=== PATIENT | female | born 2000 | race Caucasian/White ===

== ENCOUNTER 2021-04-05 06:23 | Inpatient (IN) ==
[2021-04-05] MEDS ORDERED: D5 1/2 NS 1000 ML 1,000 ML IV ONE (06:34)
[2021-04-05] MEDS ORDERED: BETADINE SOLN ONE (06:34)
[2021-04-05] MEDS ORDERED: PITOCIN ONE (06:34)
[2021-04-05] MEDS ORDERED: D5LR 1L W PITOCIN 10 UNITS/L 10 UNITS/1,000 ML BAG IV ONE (06:35)
[2021-04-05] MEDS ORDERED: D5 1/2 NS 1L W PITOCIN 20 UNITS/L 20 UNITS/1,000 ML BAG IV ONE (06:35)
[2021-04-05] MEDS: D5 1/2 NS 1000 ML 1,000 ML IV SCH ×2 (06:50→16:49)
--- NOTE | 2021-04-05 07:08 | DR.OB ---
OB Quick Note - Assessment/Plan Assessment/Plan: L&D 04/05/21 at 6:55am S-No complaint. O-Afebrile,VSS ZPM=208 with good LTV, +accel, no decel. CTX=mild uterine irritability CVX=4cm/75%/0/VTX AROM with light meconium. IUPC and FSE placed. A-IUP at 40 4/7 weeks for induction P-Begin pitocin induction Anticipate
[2021-04-05] MEDS ORDERED: PHENERGAN INJ 25 MG IM PRN ×2 (07:38→16:05)
[2021-04-05] MEDS ORDERED: MORPHINE SULFATE INJ 2 MG INJ IVP PRN (07:38)
[2021-04-05] MEDS ORDERED: STADOL INJ IVP PRN (07:38)
[2021-04-05] MEDS ORDERED: NUBAIN INJ 200 MG VIAL MULTIDOSE IVP PRN (07:38)
[2021-04-05] MEDS ORDERED: PITOCIN IVP ONE (07:38)
[2021-04-05] MEDS ORDERED: D5LR 1L W PITOCIN 10 UNITS/L 10 UNITS/1,000 ML BAG IV PRN (07:38)
[2021-04-05] MEDS ORDERED: REGLAN INJ 10 MG VIAL IVP PRN (07:38)
[2021-04-05] MEDS ORDERED: NAROPIN EPIDURAL 0.2% 100 ML ONE (08:16)
[2021-04-05] MEDS ORDERED: LR 1000 ML IV 1,000 ML IV ONE ×2 (08:16→11:43)
[2021-04-05] MEDS ORDERED: FENTANYL VIAL INJ 100 mcg ONE (08:16)
[2021-04-05] MEDS ORDERED: REGLAN INJ 10 MG VIAL ONE (09:04)
[2021-04-05] MEDS ORDERED: ZOFRAN INJ 4 MG VIAL ONE (09:04)
[2021-04-05] MEDS ORDERED: PEPCID 20 MG IV PREMIX* 50 ML IV ONE (09:04)
[2021-04-05] MEDS ORDERED: EPHEDRINE SULFATE INJ ONE (09:05)
--- NOTE | 2021-04-05 12:08 | DR.OB ---
OB Quick Note - Assessment/Plan Assessment/Plan: L&D 04/05/21 at 12:05pm Pitocin=12mu/min. S-No complaint. s/p epidural. O-Afebrile,VSS CLB=514 with good LTV, +accel, no decel. CTX=q 1 1/2 to 2 min., about 35-55mmHg CVX=7cm/100%/0 A-IUP at 40 4/7 weeks for induction P-Continue pitocin induction Anticipate
[2021-04-05] MEDS ORDERED: MOTRIN TAB 800 MG PO PRN (16:05)
--- NOTE | 2021-04-05 16:26 | DR.OB ---
OB Quick Note - Assessment/Plan Assessment/Plan: Delivery Note SENIOR CARE PROVIDER 04/05/21 at 3:48pm Patient complete and pushing. Head delivered over intact perineum. Nose and mouth bulb suctioned. No nuchal cord. Body delivered over intact perineum. Cord clamped x 2 and cut. Infant handed to attendant. Cord sent for gases. Placenta delivered spontaneously / intact / 3 vessel cord. No CVX tears noted. A small second degree midline tear noted and repaired with 0-vicryl in usual fashion. Viable female , VTX/OA, wt=7'7" and 8/9, stable to NBN. Mother stable to RR. YES=[id number].
[2021-04-05] MEDS: D5 1/2 NS 1000 ML 1,000 ML with PITOCIN 20 UNITS IV SCH ×2 (16:48)
[2021-04-05] MEDS ORDERED: ADACEL or BOOSTRIX TDaP VACCINE IM ONE (17:00)
[2021-04-05] MEDS ORDERED: MILK OF MAGNESIA PO PRN (17:00)
[2021-04-05] MEDS ORDERED: DERMOPLAST PAIN RELIEF SPRAY TOP PRN (17:00)
[2021-04-05] MEDS ORDERED: AMBIEN PO PRN (17:00)
[2021-04-06] MEDS: D5 1/2 NS 1000 ML 1,000 ML with PITOCIN 20 UNITS IV SCH ×4 (03:04→11:47)
[2021-04-06 05:24] LABS: HEMATOCRIT 30.9 % (36.0-47.0); HEMOGLOBIN 10.1 g/dL (12.0-16.0)
[2021-04-06] MEDS ORDERED: PRENATAL PLUS PO SCH (09:00)
[2021-04-06 16:29] VITALS: BP 131/89
== END 2021-04-06 17:40 | disposition home or self-care (01) | DRG 807 ==
LOC: LD 06:23 → MED/SURG 17:30
PROVIDERS: ADMIT Specialist; ATTEND Specialist
DX: Z3A.40 40 weeks gestation of pregnancy; Z20.822 Contact with and (suspected) exposure to COVID-19; O26.893 Other specified pregnancy related conditions, third trimester; Z37.0 Single live birth; O70.1 Second degree perineal laceration during delivery